=== PATIENT | female | born 1955 | race Caucasian/White ===

== ENCOUNTER 2023-12-06 16:15 | Emergency (ER) | payer MEDICARE, OTHER ==
[~2023-12-06] VITALS: Ht 154.9 cm; Wt 65.5 kg
[2023-12-06 16:48] VITALS: BP 130/67; PULSE 82; RESP 18; O2SAT 91
[2023-12-06 18:19] VITALS: TEMP 97.2
== END 2023-12-06 18:21 | disposition home or self-care (01) ==
LOC: ER 16:15
DX: Z77.098 Contact with and (suspected) exposure to other hazardous, chiefly nonmedicinal, chemicals (principal); R42 Dizziness and giddiness; R11.0 Nausea
CPT/HCPCS: 99281

== ENCOUNTER 2024-01-08 18:21 | Emergency (ER) | payer MEDICARE, OTHER ==
[~2024-01-08] VITALS: Ht 152.4 cm; Wt 65.5 kg
[2024-01-08 18:32] VITALS: TEMP 98.1
[2024-01-08 20:16] VITALS: BP 169/74; PULSE 72; RESP 16; O2SAT 96
== END 2024-01-08 22:29 | disposition home or self-care (01) ==
LOC: ER 18:22
DX: S60.221A Contusion of right hand, initial encounter (principal); W01.0XXA Fall on same level from slipping, tripping and stumbling without subsequent striking against object, initial encounter; Y93.89 Activity, other specified; Y92.89 Other specified places as the place of occurrence of the external cause; Y99.8 Other external cause status
CPT/HCPCS: 29125; 73130; 99283; L3908

== ENCOUNTER 2024-01-23 19:22 | Emergency (ER) | payer MEDICARE, OTHER ==
[~2024-01-23] VITALS: Ht 154.9 cm; Wt 45.5 kg
[2024-01-23 20:20] LABS: BASOPHILS # (AUTO) 0.1 X10'3 (0-0.2); BASOPHILS % (AUTO) 0.8 % (0-1); EOSINOPHILS # (AUTO) 0.2 X10'3 (0-0.9); EOSINOPHILS % (AUTO) 2.6 % (0-6); HEMATOCRIT 42.4 % (35.0-45.0); HEMOGLOBIN 13.9 g/dl (12.0-16.0); LYMPHOCYTES # (AUTO) 0.8 X10'3 (1.1-4.8); MEAN CORPUSCULAR HEMOGLOBIN 28.1 PG (27.0-31.0); MEAN CORPUSCULAR HGB CONC 32.9 g/dL (33.0-36.5); MEAN CORPUSCULAR VOLUME 85.4 FL (78-98); MEAN PLATELET VOLUME 8.5 FL (7.4-10.4); MONOCYTES # (AUTO) 0.5 X10'3 (0-0.9); MONOCYTES % (AUTO) 8.5 % (2-12); NEUTROPHILS # (AUTO) 4.5 X10'3 (1.8-7.7); NEUTROPHILS % (AUTO) 75.1 % (42-75); PLATELET COUNT 190 X10'3 (140-440); RED BLOOD COUNT 4.96 X10'6 (4.20-5.60); RED CELL DISTRIBUTION WIDTH 14.8 % (11.5-14.5)
[2024-01-23 20:34] LABS: ALANINE AMINOTRANSFERASE 23 U/L (12-78); ALKALINE PHOSPHATASE 104 IU/L (46-116); ANION GAP 9 (8-16); ASPARTATE AMINO TRANSFERASE 31 U/L (10-37); BILIRUBIN,TOTAL 0.6 MG/DL (0.1-1.0); BLOOD UREA NITROGEN 10 MG/DL (7-18); BUN/CREATININE RATIO 14.9 (10.0-20.0); CALCIUM 9.1 MG/DL (8.5-10.1); CHLORIDE 107 MMOL/L (99-107); CREATININE 0.67 MG/DL (0.40-0.90); GLUCOSE 112 MG/DL (70-104); POTASSIUM 3.5 MMOL/L (3.5-5.1); SODIUM 142 MMOL/L (135-145); TOTAL CARBON DIOXIDE 25.9 MMOL/L (24-32); TOTAL PROTEIN 7.9 G/DL (6.4-8.2); eCRCL 58 ML/MIN; eGFR 88 ML/MIN
[2024-01-23 20:44] LABS: THYROID STIMULATING HORMONE 0.82 ulU/ml (0.34-4.50)
[2024-01-23] MEDS ORDERED: AMLO10TA13 PO (20:46)
[2024-01-23] MEDS: amLODIPine 5mg tablet PO ONE (20:58)
[2024-01-23 21:04] VITALS: BP 180/98; PULSE 89; RESP 18; TEMP 98.4; O2SAT 97
== END 2024-01-23 21:06 | disposition home or self-care (01) ==
LOC: ER 19:23
DX: I10 Essential (primary) hypertension (principal); Z79.899 Other long term (current) drug therapy
CPT/HCPCS: 36415; 80053; 84439; 84443; 84484; 85025; 99283

== ENCOUNTER 2024-05-12 11:05 | Observation (INO) | payer MEDICARE, OTHER ==
[~2024-05-12] VITALS: Ht 152.4 cm; Wt 63.2 kg
[~2024-05-12 11:05] MED LIST: AMLO10TA13 PO
[2024-05-12 13:03] LABS: BASOPHILS % (AUTO) 0.5 % (0-1); EOSINOPHILS % (AUTO) 0.1 % (0-6); HEMATOCRIT 41.8 % (35.0-45.0); HEMOGLOBIN 14.3 g/dl (12.0-16.0); LYMPHOCYTES # (AUTO) 1.2 X10'3 (1.1-4.8); LYMPHOCYTES % (AUTO) 28.9 % (21-51); MEAN CORPUSCULAR HEMOGLOBIN 29.4 PG (27.0-31.0); MEAN CORPUSCULAR HGB CONC 34.2 g/dL (33.0-36.5); MEAN CORPUSCULAR VOLUME 85.9 FL (78-98); MONOCYTES # (AUTO) 0.6 X10'3 (0-0.9); MONOCYTES % (AUTO) 15.4 % (2-12); NEUTROPHILS # (AUTO) 2.3 X10'3 (1.8-7.7); NEUTROPHILS % (AUTO) 55.1 % (42-75); PLATELET COUNT 183 X10'3 (140-440); RED BLOOD COUNT 4.87 X10'6 (4.20-5.60); WHITE BLOOD COUNT 4.2 X10'3 (4.5-11.0)
[2024-05-12 13:03] LABS: BILIRUBIN,URINE NEGATIVE (Neg); CLARITY,URINE SLIGHTLY CLOUDY (Clear); COLOR,URINE YELLOW (Yellow); GLUCOSE, URINE NEGATIVE (Neg); KETONES,URINE NEGATIVE (Neg); LEUKOCYTE ESTERASE ,URINE SMALL (Neg); NITRITES, URINE NEGATIVE (Neg); OCCULT BLOOD,URINE NEGATIVE (Neg); PROTEIN,URINE NEGATIVE (Neg); UROBILINOGEN,URINE 0.2 E.U/dL (0.2-1.0)
[2024-05-12 13:06] LABS: UA COLLECTION TYPE CLN CATCH MIDSTREAM
[2024-05-12 13:09] LABS: BACTERIA,URINE FEW /HPF (Neg); MUCUS STRANDS NONE SEEN /LPF (Neg); RBC,URINE 0-2 /HPF (0-2); SQUAMOUS EPITHELIAL CELL,UR FEW /LPF (FEW); WBC,URINE 0-4 /HPF (0-4)
[2024-05-12 13:13] LABS: ALANINE AMINOTRANSFERASE 25 U/L (12-78); ALBUMIN 3.8 G/DL (3.4-5.0); ALKALINE PHOSPHATASE 75 IU/L (46-116); ANION GAP 10 (8-16); ASPARTATE AMINO TRANSFERASE 32 U/L (10-37); BILIRUBIN,TOTAL 0.6 MG/DL (0.1-1.0); BLOOD UREA NITROGEN 31 MG/DL (7-18); BUN/CREATININE RATIO 34.4 (10.0-20.0); CALCIUM 8.6 MG/DL (8.5-10.1); CHLORIDE 103 MMOL/L (99-107); GLUCOSE 90 MG/DL (70-104); LIPASE 61 U/L (16-77); POTASSIUM 3.5 MMOL/L (3.5-5.1); SODIUM 139 MMOL/L (135-145); TOTAL PROTEIN 7.8 G/DL (6.4-8.2); eCRCL 43 ML/MIN; eGFR 62 ML/MIN
[2024-05-12 13:47] LABS: ANISOCYTOSIS 1+; MICROCYTOSIS 1+; PLATELET ESTIMATE NORMAL; TOTAL CELLS COUNTED 100
[2024-05-12] MEDS: HYDROcodone/acetaminophen 10/325mg tab PO ONE (20:22)
[2024-05-12] MEDS: ipratropium/albuterol 3ml nebule NEB ONE (23:10)
[2024-05-12 23:16] VITALS: PULSE 74; RESP 16; O2SAT 98
[2024-05-13] MEDS: methylPREDNISolone sod succ 125mg/2ml vial IV ONE (00:07)
[2024-05-13] MEDS ORDERED: ondansetron/PF 4mg/2ml inj IV PRN (00:10)
[2024-05-13] MEDS ORDERED: magnesium sulf-water 4G/100mL 100 ML IV PRN (00:10)
[2024-05-13] MEDS ORDERED: potassium Cl 20 mEq SR tablet PO PRN ×2 (00:10)
[2024-05-13] MEDS ORDERED: magnesium sulf-water 2g/50mL 50 ML IV PRN (00:10)
[2024-05-13] MEDS ORDERED: potassium Cl 40MEQ/1/2NS 520ml 520 ML IV PRN (00:10)
[2024-05-13] MEDS ORDERED: acetaminophen 325mg tablet PO PRN (00:10)
[2024-05-13] MEDS ORDERED: ipratropium/albuterol 3ml nebule NEB PRN (00:15)
[2024-05-13 02:20] VITALS: TEMP 98.5
[2024-05-13 04:36] LABS: MAGNESIUM 2.5 MG/DL (1.5-2.4); POTASSIUM 4.3 MMOL/L (3.5-5.1)
[2024-05-13 06:22] VITALS: BP 101/51
[2024-05-13] MEDS ORDERED: iohexol 350MG/ML 100ml bottle IV ONE (06:32)
[2024-05-13 07:45] LABS: D-DIMER 0.46 MG/L FEU (0-0.50)
[2024-05-13] MEDS: K and/or MAG REPLACEMENT MC SCH (08:00)
[2024-05-13] MEDS: methylPREDNISolone sod succ/PF 40mg inj. IV SCH (09:52)
[2024-05-13 10:32] VITALS: PULSE 67; RESP 17; O2SAT 94
[2024-05-13] MEDS ORDERED: ALBU8HFA INH (11:41)
[2024-05-13] MEDS ORDERED: PRED10TA PO (11:43)
[2024-05-13] MEDS ORDERED: enoxaparin 40mg/0.4ml syringe SQ SCH (20:00)
== END 2024-05-13 13:10 | disposition home or self-care (01) ==
LOC: ER 11:05 → ED HOLD 05-13 00:12
PROVIDERS: ADMIT Internal Medicine Critical Care Medicine; ATTEND Family Medicine
DX: J44.1 Chronic obstructive pulmonary disease with (acute) exacerbation (principal); Z20.822 Contact with and (suspected) exposure to COVID-19; J96.01 Acute respiratory failure with hypoxia; K58.9 Irritable bowel syndrome, unspecified; R41.3 Other amnesia; R60.0 Localized edema; I10 Essential (primary) hypertension; Z87.891 Personal history of nicotine dependence; Z79.899 Other long term (current) drug therapy
CPT/HCPCS: 71275; 76700; 80053; 81001; 83690; 83735; 84132; 85007; 85379; 87077; 87186; 87502; 87503; 87811; 93005; 93970; 94640; 94760; 96374; 96375; 99285; A4615; G0378; J2919; 36415; 71045; 74176; 85025; 87088; Q9967

== ENCOUNTER 2024-07-09 19:54 | Emergency (ER) | payer MEDICARE, OTHER ==
[~2024-07-09] VITALS: Ht 165.1 cm; Wt 66.2 kg
[~2024-07-09 19:54] MED LIST changes: +PRED10TA PO
[2024-07-09] MEDS: HYDROcodone/acetaminophen 5mg/325mg tablet PO STA (21:38)
[2024-07-09] MEDS ORDERED: HYDR-3965 PO (23:47)
[2024-07-09 23:57] VITALS: BP 132/64; PULSE 86; RESP 18; TEMP 98.6; O2SAT 99
== END 2024-07-10 00:01 | disposition home or self-care (01) ==
LOC: ER 19:55
DX: S42.292A Other displaced fracture of upper end of left humerus, initial encounter for closed fracture (principal); S80.211A Abrasion, right knee, initial encounter; J44.9 Chronic obstructive pulmonary disease, unspecified; W01.0XXA Fall on same level from slipping, tripping and stumbling without subsequent striking against object, initial encounter; Y93.89 Activity, other specified; Y92.89 Other specified places as the place of occurrence of the external cause; Y99.8 Other external cause status
CPT/HCPCS: 29105; 73030; 73200; 99284; A4565